=== PATIENT | male | born 1975 | race Two or more races ===

== ENCOUNTER 2017-04-21 07:52 | Outpatient (CLI) | payer OTHER ==
--- NOTE | 2017-04-21 16:37 | MRI Report ---
EXAM: MRI CERVICAL SPINE WITHOUT CONTRAST EXAM DATE: 04/21/2017 08:30 AM. CLINICAL HISTORY: Left shoulder pain 6 months. Left-sided neck pain 2 months. Neck injury playing bas ketball January 2017. COMPARISONS: None. TECHNIQUE: Multiplanar, multisequence T1-weighted and fluid-sensitive sequences of the cervical spine without contrast. Other: None. FINDINGS: No posterior interspinous ligament or prevertebral edema is identified. No marrow replacement is seen in the cervical vertebral bodies. No significant spondylolisthesis is p resent. Disk space height is preserved. No posterior disk protrusions are present. There is no central canal or foraminal stenosis. No abnormal signal is seen in the cervical spinal cord. IMPRESSION: 1. Normal cervical spine MRI. [facility] Referring Provider Line: [phone] SITE ID: [id number]
== END 2017-04-21 07:53 | disposition home or self-care (01) ==
LOC: DI 07:52
PROVIDERS: ATTEND General Practice
DX: M25.512 Pain in left shoulder (principal); M54.2 Cervicalgia
CPT/HCPCS: 72141